=== PATIENT | female | born 1950 | race Caucasian/White ===

== ENCOUNTER → 2018-08-08 | Outpatient (CLI) | payer OTHER | LOC: M.RAD 11:30 | DX: Z12.31 Encounter for screening mammogram for malignant neoplasm of breast (principal) ==

== ENCOUNTER → 2019-08-09 | Outpatient (CLI) | payer OTHER | LOC: M.RAD 10:20 | DX: Z12.31 Encounter for screening mammogram for malignant neoplasm of breast (principal) ==

== ENCOUNTER → 2020-08-12 | Outpatient (CLI) | payer OTHER | LOC: M.RAD 12:44 | PROVIDERS: ATTEND Internal Medicine | DX: Z12.31 Encounter for screening mammogram for malignant neoplasm of breast (principal) ==

== ENCOUNTER → 2021-08-13 | Outpatient (CLI) | payer OTHER | LOC: M.RAD 10:40 | PROVIDERS: ATTEND Internal Medicine | DX: Z12.31 Encounter for screening mammogram for malignant neoplasm of breast (principal) ==